=== PATIENT | female | born 1955 | race Hispanic/Latino ===

== ENCOUNTER 2017-01-27 09:28 | Outpatient (CLI) | payer OTHER ==
[2017-01-27 10:19] LABS: Blood Urea Nitrogen 11 mg/dL (7-17)
--- NOTE | 2017-01-27 16:06 | Magnetic Resonance Report ---
MRI BRAIN WITH AND WITHOUT CONTRAST INDICATION: Anosmia. COMPARISON: None similar. FINDINGS: Multiplanar and multisequence MRI of the brain performed before and after 20 ml Multihance intravenously. Normal ventricles. Mild bifrontal sulcal enlargement, though symmetric and overall age-appropriate. Slight periventricular and few white matter FLAIR and T2 weighted hyperintensities. No acute infarct, hemorrhage, mass effect or midline shift. No abnormal extraaxial masses or fluid collections. Normal major intracranial vascular flow voids. No suspicious abnormal enhancement. Normal posterior fossa with symmetric seventh and eighth nerve complexes and preserved basilar cisterns. Left vertebral artery dominant. Normal eye globes. Mild nasal septal deviation. Clear imaged paranasal sinuses and mastoid air cells. Normal midline structures without evidence of Chiari malformation. CONCLUSION: No acute intracranial MRI abnormality with few incidental findings, as above. Thank you for the opportunity to participate in this patient's care.
== END 2017-01-27 09:29 | disposition home or self-care (01) ==
LOC: MRI 09:28
PROVIDERS: ATTEND Otolaryngology
DX: R43.0 Anosmia (principal); J34.2 Deviated nasal septum
CPT/HCPCS: 36415; 70553; 82565; 84520; A9577

== ENCOUNTER 2021-01-14 13:55 | Outpatient (CLI) | payer MEDICARE ==
--- NOTE | 2021-01-14 16:26 | Fluoroscopy Report ---
LIMITED ESOPHAGRAM AND FLUOROSCOPIC GUIDANCE OF LAP BAND PORT CANNULIZATION AND DECOMPRESSION INDICATION: Lap band placement in 2012, recent difficulty eating, vomiting COMPARISON: None FLUOROSCOPY TIME: 6.8 minutes, 120 images PROCEDURE: Limited esophagram was performed initially in the upright position. LAP-BAND is seen in th e expected location with perhaps slightly more horizontal orientation than usual but within parameter s. Administration of thin barium shows good flow of barium through the esophagus into and through the lap band into the stomach. There is noticeable narrowing at the level of the LAP-BAND. Spasticity of the distal esophagus was observed on several occasions and tertiary contractions are noted but no ob structive lesion is seen within the esophagus. Pharynx was not examined. Fluoroscopic guidance was then provided to Dr. Arce for cannulation of the LAP-BAND port in the are a just above the umbilicus. When this was achieved, Dr. Arce partly deflated the device. Additional images after partial deflation show better flow contrast through the lap band with much le ss narrowing. IMPRESSION: 1. Successful partial LAP-BAND deflation 2. Spasticity is noted in the distal esophagus without fixed anatomic lesion seen. Signer Name: Florian Love MD Signed: 01/14/2021 4:21 PM Workstation Name: [id number]
== END 2021-01-14 13:56 | disposition home or self-care (01) ==
LOC: FLUORO 13:55
PROVIDERS: ATTEND Surgery
DX: R13.10 Dysphagia, unspecified (principal); R11.10 Vomiting, unspecified; K22.89 Other specified disease of esophagus; Z98.84 Bariatric surgery status
CPT/HCPCS: 43999; 74220; 77002

== ENCOUNTER 2021-06-02 11:30 | Outpatient (CLI) | payer MEDICARE ==
--- NOTE | 2021-06-02 13:56 | Fluoroscopy Report ---
BARIUM SWALLOW HISTORY: Lap band manipulation, Z98.84 FINDINGS: A modified examination was performed with the surgeon Dr. Arce. 3.3 minutes of fluoroscop y time was utilized to access the lap band port. Approximately 0.5 cc of fluid was added to the devic e. The patient ingested a small amount of thin barium to ensure proper operation of the lap band jhonny ce. The lap band appears in good position. No obstruction. 2 fluoroscopic images were saved. Signer Name: Kd Mclean Jr, MD Signed: 06/02/2021 1:51 PM Workstation Name: [id number]
== END 2021-06-02 11:31 | disposition home or self-care (01) ==
LOC: FLUORO 11:30
PROVIDERS: ATTEND Surgery
DX: K21.9 Gastro-esophageal reflux disease without esophagitis (principal); E66.01 Morbid (severe) obesity due to excess calories; Z98.84 Bariatric surgery status
CPT/HCPCS: 74220